=== PATIENT | female | born 1955 | race Caucasian/White ===

== ENCOUNTER 2024-07-15 08:16 | Outpatient (CLI) | payer MEDICARE | END 2024-07-15 08:17 | disposition home or self-care (01) | LOC: NM 08:16 | PROVIDERS: ATTEND Psychiatry & Neurology Neurology | DX: R29.818 Other symptoms and signs involving the nervous system (principal); G31.9 Degenerative disease of nervous system, unspecified | CPT/HCPCS: 78803; A9584 ×2 ==